=== PATIENT | female | born 1940 | race Caucasian/White ===

== ENCOUNTER → 2017-04-16 | Day surgery (SDC) | payer MEDICARE, OTHER ==
[~2017-04-16] MED LIST: Lactated Ringers 1,000 ML IV SCH; Propofol 200 MG/20 ML SDV IV ONE
[2017-04-16 09:59] VITALS: BP 116/63
--- NOTE | 2017-04-16 13:17 | OR ---
DATE OF OPERATION: 04/16/2017 PREOPERATIVE DIAGNOSIS: GASTROESOPHAGEAL REFLUX DISEASE. POSTOPERATIVE DIAGNOSIS: GASTROESOPHAGEAL REFLUX DISEASE ALONG WITH SEVERE GASTRITIS AND DUODENITIS. SURGEON: Amrik Triana MD PROCEDURE: UPPER GASTROINTESTINAL ENDOSCOPY WITH BIOPSIES, ANTRUM AND DUODENUM. ANESTHESIA: IV sedation and Cetacaine spray. DESCRIPTION OF PROCEDURE: After the patient's oropharyngeal mucosa was anesthetized, the patient was made to swallow the gastroscope down. The patient does have severe gastroesophageal reflux coming up to mid esophagus. The patient's EG junction is close to 40 cm level. I do not see any sliding hiatal hernia. If there is one, it has to be pretty small. Body of the stomach as well as antrum shows evidence of severe inflammatory changes. The first and second part duodenum also shows severe inflammatory changes. Biopsies from duodenum and antrum were taken. Multiple photographs were taken. Gastroscope was retroverted. Fundus was examined. It was free of any tumor, mass, or any polypoid lesion. Gastroscope was then gradually withdrawn. The patient tolerated the procedure well and left the operating room in satisfactory condition. PRINCE/KARLEY /[id number]
== END | disposition home or self-care (01) ==
LOC: CC.SDS 08:02
PROVIDERS: ATTEND Surgery
PROC: 0DB98ZZ Excision of Duodenum, Via Natural or Artificial Opening Endoscopic (ICD-10-PCS; principal; 2017-04-16)
PROC: 0DB78ZZ Excision of Stomach, Pylorus, Via Natural or Artificial Opening Endoscopic (ICD-10-PCS; 2017-04-16)
DX: K21.9 Gastro-esophageal reflux disease without esophagitis (principal); K29.50 Unspecified chronic gastritis without bleeding; K29.80 Duodenitis without bleeding
CPT/HCPCS: 00740; 43239; 88305; 88342; J2704; J7120